=== PATIENT | male | born 1990 | race Caucasian/White ===

== ENCOUNTER 2017-03-01 19:49 | Emergency (ER) | payer SELFPAY ==
[2017-03-01] MEDS ORDERED: Cephalexin 500 MG CAP ONE (20:06)
[2017-03-01] MEDS ORDERED: Adacel (T-DAP) 0.5 ML VIAL ONE (20:06)
== END 2017-03-01 20:25 | disposition home or self-care (01) ==
LOC: MADERS 19:49
DX: S61.212A Laceration without foreign body of right middle finger without damage to nail, initial encounter (principal); Z23 Encounter for immunization; W45.8XXA Other foreign body or object entering through skin, initial encounter
CPT/HCPCS: 90471; 90715